=== PATIENT | female | born 1985 | race Caucasian/White ===

== ENCOUNTER 2023-09-05 07:35 | Emergency (ER) | payer OTHER ==
[~2023-09-05] VITALS: Ht 167.6 cm; Wt 107.7 kg
[2023-09-05 07:41] VITALS: TEMP 97.8
[2023-09-05] MEDS ORDERED: IBUP-1493 PO (07:45)
[2023-09-05] MEDS: SODIUM CHLORIDE 0.9% 1,000 ML IV ONE (08:06)
[2023-09-05] MEDS: METOCLOPRAMIDE HCL 5 MG/ML 2 ML VIAL IVP ONE (08:06)
[2023-09-05] MEDS: KETOROLAC TROMETHAMINE 30 MG/ML VIAL IVP ONE (08:07)
[2023-09-05] MEDS: DiphenhydrAMINE HCL 50 MG/ML VIAL IVP ONE (08:07)
[2023-09-05] MEDS: ACETAMINOPHEN 1000 MG/ISO-OSM 100 ML IV ONE (09:34)
[2023-09-05] MEDS: SUMAtriptan SUCCINATE 6 MG/0.5 ML VIAL SQ ONE (10:03)
[2023-09-05] MEDS: VALPROATE SODIUM 1,000 MG in DEXTROSE 5%-WATER 100 ML IV ONE (10:17)
[2023-09-05] MEDS: MORPHINE SULFATE 4 MG/ML SYRINGE IVP ONE (11:13)
[2023-09-05] MEDS ORDERED: SUMA25TA15 PO (11:36)
[2023-09-05 11:54] VITALS: BP 126/77; PULSE 72; RESP 16
== END 2023-09-05 12:24 | disposition home or self-care (01) ==
LOC: EMS 07:37
DX: G43.909 Migraine, unspecified, not intractable, without status migrainosus (principal); M79.7 Fibromyalgia; F12.90 Cannabis use, unspecified, uncomplicated; Z90.89 Acquired absence of other organs; Z98.890 Other specified postprocedural states
CPT/HCPCS: 99285; 96365; 96375; 70450; 96361; 96366; 96368; 96372; J1200; J1885; J2765; J2270; J3030; J3490; J7060; J7030; J0131

== ENCOUNTER 2023-12-15 22:30 | Emergency (ER) | payer MEDICAID, OTHER ==
[~2023-12-15] VITALS: Ht 167.6 cm; Wt 109.1 kg
[~2023-12-15 22:30] MED LIST: IBUP-1493 PO; SUMA25TA15 PO
[2023-12-15 22:31] VITALS: TEMP 97.9
[2023-12-15] MEDS: ONDANSETRON HCL 4 MG/2 ML VIAL IVP ONE (22:57)
[2023-12-15] MEDS: DEXAMETHASONE SOD PHOS 4 MG/ML 5 ML VIAL IVP ONE (22:58)
[2023-12-15] MEDS: KETOROLAC TROMETHAMINE 30 MG/ML VIAL IVP ONE (22:58)
[2023-12-16] MEDS: FentaNYL CITRATE PF 100 MCG/2 ML VIAL IVP ONE (00:19)
[2023-12-16] MEDS: SODIUM CHLORIDE 0.9% 1,000 ML IV ONE (00:20)
[2023-12-16 00:25] VITALS: BP 118/68; PULSE 76; RESP 17
[2023-12-16 00:41] LABS: BASOPHILS % (AUTO) 0.5 % (0.0-2.0); EOSINOPHILS % (AUTO) 1.9 % (1.0-6.0); HEMATOCRIT 37.1 % (36-46); HEMOGLOBIN 12.6 g/dL (12.0-16.0); LYMPHOCYTES # (AUTO) 1.9 K/uL (1.0-4.8); LYMPHOCYTES % (AUTO) 28.1 % (22.0-44.0); MEAN CORPUSCULAR HEMOGLOBIN 28.7 pg (26.0-34.0); MEAN CORPUSCULAR VOLUME 84 fL (80-100); MONOCYTES # (AUTO) 0.5 K/uL (0.1-1.0); MONOCYTES % (AUTO) 6.7 % (2.0-9.0); NEUTROPHILS # (AUTO) 4.2 K/uL (1.8-7.7); NEUTROPHILS % (AUTO) 62.8 % (40.0-70.0); PLATELET COUNT (AUTO) 246 K/uL (150-450); RED BLOOD CELL COUNT(AUTO) 4.39 MIL/uL (4.00-5.20); RED CELL DISTRIBUTION WIDTH 13.1 % (11.5-14.5); WHITE BLOOD COUNT (AUTO) 6.7 K/uL (4.5-11.0)
[2023-12-16 00:45] LABS: ANION GAP 10 mmol/L (8-16); CALCIUM, TOTAL 8.9 mg/dL (8.8-10.5); CARBON DIOXIDE 25 mmol/L (22-29); CHLORIDE 103 mmol/L (98-107); CREATININE 0.62 mg/dL (0.60-1.30); GLOMERULAR FILTR. RATE CALC > 60 mL/min (>60); GLUCOSE,RANDOM 116 mg/dL (70-110); POTASSIUM 3.2 mmol/L (3.5-5.1); SODIUM SERUM 138 mmol/L (136-145); UREA NITROGEN, BLOOD 11 mg/dL (7-18)
[2023-12-16 00:53] LABS: ALANINE AMINOTRANSFERASE 18 U/L (12-78); ALBUMIN 3.3 g/dL (3.4-5.0); ALKALINE PHOSPHATASE 60 U/L (46-116); ASPARTATE AMINOTRANSFERASE 9 U/L (15-37); BILIRUBIN,TOTAL 0.4 mg/dL (0.1-1.0); LIPASE 27 U/L (16-77); TOTAL PROTEIN, SERUM 7.1 g/dL (6.4-8.2)
[2023-12-16 01:27] LABS: APPEARANCE,URINE HAZY (CLEAR); BILIRUBIN,URINE NEGATIVE (NEGATIVE); COLOR,URINE LIGHT ORANGE (YELLOW); GLUCOSE, URINE (UA) NEGATIVE (NEGATIVE); KETONES,URINE 40-60 mg/dL (NEGATIVE); LEUKOCYTE ESTERASE ,URINE SMALL (NEGATIVE); NITRATE,URINE NEGATIVE (NEGATIVE); OCCULT BLOOD,URINE LARGE (NEGATIVE); PROTEIN,URINE 30-70 mg/dL (NEGATIVE); SPECIFIC GRAVITIY, URINE 1.017 (1.003-1.030); UROBILINOGEN,URINE <=1.0 mg/dL (<=1.0)
[2023-12-16 01:37] LABS: BACTERIA,URINE None Seen /HPF (None Seen); RBC,URINE >100 /HPF (0-2); SQUAMOUS EPITHELIAL CELL,UR Few /LPF (None Seen)
[2023-12-16] MEDS ORDERED: SUMA25TA15 PO (01:52)
[2023-12-16] MEDS ORDERED: ONDA-104 PO (01:52)
[2023-12-16] MEDS ORDERED: METH4TAB95 PO (01:52)
[2023-12-16] MEDS: LORazepam 2 MG/ML VIAL IVP ONE (02:06)
== END 2023-12-16 02:21 | disposition home or self-care (01) ==
LOC: EMS 22:31
DX: G43.909 Migraine, unspecified, not intractable, without status migrainosus (principal); A08.4 Viral intestinal infection, unspecified; M79.7 Fibromyalgia; F12.90 Cannabis use, unspecified, uncomplicated; Z90.89 Acquired absence of other organs; Z98.890 Other specified postprocedural states
CPT/HCPCS: 99285; 96374; 96375 ×2; 80053; 81001; 83690; 84703; 85025; 36415; 70450; 96361; 74176; 93005; J1100; J1885; J2405; J3010; J2060; J7030